=== PATIENT | female | born 1955 | race Caucasian/White ===

== ENCOUNTER 2018-03-08 07:24 | Emergency (ER) | payer OTHER ==
[~2018-03-08] VITALS: Ht 167.6 cm; Wt 59.1 kg
[~2018-03-08 07:24] MED LIST: LEVAQUIN 750MG750 M1 PO; TESSALON P100 MG/CAP PO; TUSS PO; TYLENOL 325MG325 MG PO
[2018-03-08 07:29] VITALS: TEMP 97.7
[2018-03-08 07:53] VITALS: BP 116/59; PULSE 66
== END 2018-03-08 07:54 | disposition home or self-care (01) ==
LOC: COL.ER 07:24
DX: S92.504A Nondisplaced unspecified fracture of right lesser toe(s), initial encounter for closed fracture (principal); W22.8XXA Striking against or struck by other objects, initial encounter

== ENCOUNTER → 2018-10-12 | Outpatient (CLI) | payer MEDICARE, OTHER | LOC: MC.RAD 09:45 | DX: Z12.31 Encounter for screening mammogram for malignant neoplasm of breast (principal) ==

== ENCOUNTER 2019-02-10 14:40 | Emergency (ER) | payer MEDICARE, OTHER ==
[~2019-02-10] VITALS: Ht 167.6 cm; Wt 63.6 kg
[2019-02-10 14:46] VITALS: BP 125/70
[2019-02-10 16:54] LABS: BASO # 0.1 (0.0-0.2); BASO % 0.6 % (0.0-2.0); EOS # 0.3 (0.0-0.7); EOS % 2.7 % (0-4.0); GRAN # 6.9 (1.4-6.5); GRAN % 74.4 % (42.2-75.2); HEMATOCRIT 40.9 % (37.0-47.0); HEMOGLOBIN 13.6 g/dl (12.5-16.0); LYMPH # 1.3 (1.2-3.4); LYMPH % 13.7 % (20.0-51.0); MEAN CELL VOLUME 93 fl (80.0-100.0); MEAN CORPUSCULAR HEMOGLOBIN 31 pg (27.0-31.0); MEAN CORPUSCULAR HGB CONC 33 g/dl (33.0-37.0); MEAN PLATELET VOLUME 11.4 fl (7.4-10.4); MONO # 0.8 (0.1-0.6); MONO % 8.4 % (1.7-9.3); PLATELET COUNT 250 K/mm3 (130-400); RED BLOOD COUNT 4.41 M/mm3 (4.10-5.30); REDCELL DISTRIBUTION WIDTH-CV 11.9 % (11.5-14.5)
[2019-02-10 17:04] LABS: ALBUMIN 4.1 gm/dL (3.5-5.0); BILIRUBIN,TOTAL 0.6 mg/dL (0.0-1.0); CALCIUM 9.1 mg/dL (8.4-10.2); CREATININE, serum 0.74 (0.52-1.25); TOTAL PROTEIN 7.3 gm/dL (6.4-8.2)
[2019-02-10 17:34] VITALS: TEMP 98.2
[2019-02-10] MEDS ORDERED: ZITHROMAX 250M250 MG PO ×3 (17:59→18:27)
[2019-02-10] MEDS ORDERED: TESSALON P100 MG/CAP PO ×3 (17:59→18:27)
[2019-02-10 18:07] VITALS: PULSE 68
== END 2019-02-10 18:07 | disposition home or self-care (01) ==
LOC: COL.ER 14:40
PROVIDERS: Emergency Medicine
DX: J20.9 Acute bronchitis, unspecified (principal); Z90.710 Acquired absence of both cervix and uterus; Z88.5 Allergy status to narcotic agent

== ENCOUNTER → 2020-09-30 | Outpatient (CLI) | payer MEDICARE, OTHER ==
[~2020-09-30] MED LIST changes: +ZITHROMAX 250M250 MG PO
== END ==
LOC: COL.PUL 09:44
DX: R05 Cough (principal)
CPT/HCPCS: J7674

== ENCOUNTER → 2021-04-16 | Outpatient (CLI) | payer MEDICARE, OTHER | LOC: MC.RAD 09:15 | DX: Z12.31 Encounter for screening mammogram for malignant neoplasm of breast (principal) ==

== ENCOUNTER → 2022-04-21 | Outpatient (CLI) | payer MEDICARE, OTHER | LOC: MC.RAD 11:35 | DX: Z12.31 Encounter for screening mammogram for malignant neoplasm of breast (principal); N64.4 Mastodynia ==

== ENCOUNTER → 2023-05-24 | Outpatient (CLI) | payer MEDICARE | LOC: MC.RAD 09:30 | DX: Z12.31 Encounter for screening mammogram for malignant neoplasm of breast (principal) ==

== ENCOUNTER 2023-06-08 00:17 | Emergency (ER) | payer MEDICARE, OTHER ==
[~2023-06-08] VITALS: Ht 165.1 cm; Wt 63.6 kg
[2023-06-08 00:23] VITALS: TEMP 97.7
[2023-06-08 00:39] LABS: COLLECTION METHOD CLEAN CATCH
[2023-06-08 00:58] LABS: PH 5.5 (5.0-8.5); URINE APPEARANCE Turbid (CLEAR/HAZY); URINE COLOR Red (YELLOW); URINE GLUCOSE Negative (NEGATIVE); URINE KETONE TRACE (NEGATIVE); URINE PROTEIN(semi-quant) 3+ (NEGATIVE)
[2023-06-08 00:59] LABS: URINE BACTERIA Occasional /hpf (NONE SEEN); URINE BLOOD 3+ (NEGATIVE); URINE NITRATE Negative (NEGATIVE); URINE RBC >50 /hpf (0-2)
[2023-06-08] MEDS ORDERED: CEFTIN500 MG PO (01:15)
[2023-06-08 01:24] VITALS: BP 112/72; PULSE 72
== END 2023-06-08 01:24 | disposition home or self-care (01) ==
LOC: COL.ER 00:17
PROVIDERS: Nurse Practitioner Primary Care
DX: N39.0 Urinary tract infection, site not specified (principal)
CPT/HCPCS: J0696

== ENCOUNTER 2023-06-18 20:26 | Emergency (ER) | payer MEDICARE, OTHER ==
[~2023-06-18] VITALS: Ht 165.1 cm; Wt 63.6 kg
[~2023-06-18 20:26] MED LIST changes: +CEFTIN500 MG PO
[2023-06-18 20:32] VITALS: TEMP 98.5
[2023-06-18 20:53] LABS: COLLECTION METHOD CLEAN CATCH
[2023-06-18 21:16] LABS: URINE APPEARANCE Clear (CLEAR/HAZY); URINE COLOR Colorless (YELLOW); URINE GLUCOSE Negative (NEGATIVE); URINE PROTEIN(semi-quant) Negative (NEGATIVE)
[2023-06-18 21:17] LABS: SQUAMOUS EPITHELIAL 0-2 /hpf (0-10); URINE BLOOD 3+ (NEGATIVE); URINE KETONE Negative (NEGATIVE); URINE NITRATE Negative (NEGATIVE); URINE UROBILINOGEN 0.2 E.U/dL (0.2-1.0)
[2023-06-18 21:18] LABS: URINE BACTERIA Rare /hpf (NONE SEEN)
[2023-06-18] MEDS ORDERED: AMOXICILLIN 8751 TAB PO ×2 (22:04)
[2023-06-18 22:12] VITALS: BP 114/77; PULSE 98
[2023-06-19] MEDS ORDERED: AMOXICILLIN 8751 TAB PO ×3 (06:02→11:26)
== END 2023-06-18 22:12 | disposition home or self-care (01) ==
LOC: COL.ER 20:26
PROVIDERS: Nurse Practitioner Primary Care
DX: N39.0 Urinary tract infection, site not specified (principal)